=== PATIENT | male | born 1975 | race Two or more races ===

== ENCOUNTER → 2018-12-20 | Emergency (ER) | payer BC ==
[~2018-12-20] VITALS: Ht 170.2 cm; Wt 72.6 kg
[~2018-12-20] MED LIST: ADVAIR 100-501 EACH; PROZAC20 MG
== END | disposition left against medical advice (07) ==
LOC: ER 18:39
DX: Z53.20 Procedure and treatment not carried out because of patient's decision for unspecified reasons (principal)